=== PATIENT | male | born 1950 | race Caucasian/White ===

== ENCOUNTER → 2018-01-05 | Day surgery (SDC) | payer MEDICARE, MEDICAID ==
[~2018-01-05] MED LIST: Ciprofloxacin 400mg/200ml D5W 400 MG/200 ML BAG IVPB ONE; Gentamicin 160 MG in Sodium Chloride 0.9% 100 ML IVPB ONE; HYDROmorphone 0.5 mg/0.5 ml ISec IVP PRN; Lactated Ringer's 1,000 ML IV ONE; Propofol 10 mg/ml Inj (20 ML) ONE; ePHEDrine 50 mg/ml Inj ONE
--- NOTE | 2018-01-05 15:21 | PCM.SURG1 ---
Surgeon's Initial Post Op Note - Surgeon's Notes Surgeon: Trent Supervisor Water Softener Service: rebecca Type of Anesthesia: General LMA Anesthesia Administered By: staff Pre-Operative Diagnosis: BPH/Martin Operative Findings: BPH w MARTIN Post-Operative Diagnosis: same Operation Performed: TULAP Specimen/Specimens Removed: na Estimated Blood Loss: EBL {In ML}: 0 Blood Products Given: N/A Drains Used: No Drains Post-Op Condition: Good Date of Surgery/Procedure: 01/05/18 Time of Surgery/Procedure: 15:21
[2018-01-05 17:05] VITALS: O2SAT 100
[2018-01-05 17:31] VITALS: RESP 18; TEMP 97
[2018-01-05 18:01] VITALS: BP 127/80; PULSE 88
--- NOTE | 2018-01-06 02:31 | OP ---
PROCEDURE DATE: PREOPERATIVE DIAGNOSES: Benign prostatic hypertrophy, bladder outlet obstruction. POSTOPERATIVE DIAGNOSES: Benign prostatic hypertrophy, bladder outlet obstruction. PROCEDURE: Transurethral laser ablation of the prostate. SURGEON: Kalin Newman MD FINDINGS: High median bar and a lateral lobe encroachment causing bladder outlet obstruction. DESCRIPTION OF PROCEDURE: The procedure is as follows. Prior to procedure, detailed informed consent was obtained from the patient. He was apprised of all risks, complications, and alternative ways of treating his condition. He was brought into the room. A time-out was taken according to the rules and regulations at [facility]. He was then cystoscoped with laser cystoscope and the findings of a high median bar and lateral lobe encroachment were confirmed. The laser element was then inserted into the scope and vaporization of the prostate began at 11 o'clock, carried down at 6 o' clock from just distal to the bladder neck to just proximal to the verumontanum. The base tissue and the roof tissue in the opposite lobe were vaporized with similar precautions. No injury occurred to the verumontanum, external sphincter, or ureteral orifices. The patient tolerated this procedure well. There was minimal bleeding. A #[address] 5 mL catheter was inserted and drained clear irrigant fluid. The patient tolerated the procedure well and sent to the recovery room in good condition. Kalin Newman MD
== END | disposition home or self-care (01) ==
LOC: C.SDS 11:00
PROVIDERS: ATTEND Urology
DX: N40.1 Benign prostatic hyperplasia with lower urinary tract symptoms (principal); N32.0 Bladder-neck obstruction
CPT/HCPCS: 52648; A4358; J0744; J1170; J1580; J7120

== ENCOUNTER 2019-02-12 10:35 | Outpatient (CLI) | payer MEDICARE | END 2019-02-12 10:36 | disposition home or self-care (01) | LOC: C.PAT 10:35 | DX: N40.1 Benign prostatic hyperplasia with lower urinary tract symptoms (principal) ==

== ENCOUNTER 2019-02-15 09:12 | Day surgery (SDC) | payer MEDICARE ==
[2019-02-12 10:44] VITALS: BMI 29.7
[2019-02-15] MEDS ORDERED: HYDROmorphone 0.5 mg/0.5 ml ISec IVP PRN (11:56)
[2019-02-15] MEDS ORDERED: Lidocaine 2% Jelly (Uro-Jet) ONE (12:00)
[2019-02-15] MEDS ORDERED: Iohexol 240 (50 ml) ONE (12:00)
[2019-02-15] MEDS ORDERED: Gentamicin 80 mg in 0.9% NS 160 MG/200 ML BAG IVPB ONE (12:00)
[2019-02-15] MEDS ORDERED: Midazolam 2 MG/2 ML VIAL ONE (12:07)
[2019-02-15] MEDS ORDERED: Propofol 10 mg/ml Inj (20 ML) ONE (12:10)
[2019-02-15] MEDS: Ciprofloxacin 400mg/200ml D5W 400 MG/200 ML BAG IVPB ONE ×2 (12:18→12:20)
[2019-02-15] MEDS ORDERED: ePHEDrine 50 mg/ml Inj ONE (12:23)
--- NOTE | 2019-02-15 12:36 | PCM.SURG1 ---
Surgeon's Initial Post Op Note - Surgeon's Notes Surgeon: Trent Ticket Scheduler: rebecca Type of Anesthesia: General LMA Anesthesia Administered By: staff Pre-Operative Diagnosis: Urethrel stricture Operative Findings: stricture Post-Operative Diagnosis: stricture Operation Performed: Cysto ballon dilitation/oiu Specimen/Specimens Removed: na Estimated Blood Loss: EBL {In ML}: 0 Blood Products Given: N/A Drains Used: No Drains Post-Op Condition: Good Date of Surgery/Procedure: 02/15/19 Time of Surgery/Procedure: 12:35
[2019-02-15] MEDS ORDERED: Lactated Ringer's 1,000 ML IV SCH (12:45)
[2019-02-15 14:32] VITALS: BP 148/64; PULSE 86; RESP 18; TEMP 97.9; O2SAT 100
== END 2019-02-15 14:58 | disposition home or self-care (01) ==
LOC: C.SDS 09:12
PROVIDERS: ATTEND Urology
DX: N40.1 Benign prostatic hyperplasia with lower urinary tract symptoms (principal); N35.919 Unspecified urethral stricture, male, unspecified site
CPT/HCPCS: 52281; J0744; J1580